=== PATIENT | female | born 1985 | race Hispanic/Latino ===

== ENCOUNTER 2018-05-13 20:41 | Emergency (ER) | payer OTHER ==
[~2018-05-13] VITALS: Ht 152.4 cm; Wt 59.0 kg
--- OUTSIDE RECORDS SUMMARY | 2018-05-13 20:44 | XMS REPORT ---
Author Author [facility] Address Unknown Phone Unavailable Care Team Providers Care Avionics Repair Technician Name Role Phone Unavailable Unavailable Problems This patient has no known problems. Allergies, Adverse Reactions, Alerts This patient has no known allergies or adverse reactions. Medications This patient has no known medications. Encounters Start Date/Time End Date/Time Encounter Type Admission Type Attending Clinicians Care Facility Care Department Encounter ID 2017-03-07 10:22:06 2017-03-07 10:22:06 Emergency [facility] [id number]
[2018-05-13] MEDS ORDERED: KETOROLAC TROMETHAMINE 60 MG/2 ML VIAL IM NR (21:15)
[2018-05-13] MEDS ORDERED: ONDANSETRON HCL 4 MG ORAL DISINTEGRATING TAB PO ONE (21:15)
== END 2018-05-13 23:00 | disposition home or self-care (01) ==
LOC: FSED 20:41
DX: R05 Cough (principal); R51 Headache; R11.2 Nausea with vomiting, unspecified; B34.9 Viral infection, unspecified; Z77.22 Contact with and (suspected) exposure to environmental tobacco smoke (acute) (chronic)
CPT/HCPCS: 81003; 83518; 87400; 99283; Q0162

== ENCOUNTER 2018-09-09 20:15 | Emergency (ER) | payer OTHER ==
[~2018-09-09] VITALS: Ht 152.4 cm; Wt 59.0 kg
--- OUTSIDE RECORDS SUMMARY | 2018-09-09 20:17 | XMS REPORT ---
Author Author [facility] Address Unknown Phone Unavailable Care Team Providers Care Transport Specialist Name Role Phone Unavailable Unavailable Problems This patient has no known problems. Allergies, Adverse Reactions, Alerts This patient has no known allergies or adverse reactions. Medications This patient has no known medications. Encounters Start Date/Time End Date/Time Encounter Type Admission Type Attending Clinicians Care Facility Care Department Encounter ID 2017-03-07 10:22:06 2017-03-07 10:22:06 Emergency [facility] [id number]
[2018-09-09] MEDS ORDERED: KETOROLAC TROMETHAMINE 30 MG/ML VIAL IV ONE (20:36)
[2018-09-09] MEDS ORDERED: ONDANSETRON HCL INJ 2MG/ML 2ML 2 MG/ML VIAL IV ONE (20:36)
[2018-09-09] MEDS ORDERED: SODIUM CHLORIDE 0.9% 1000ML 1,000 ML IV SCH (20:45)
--- NOTE | 2018-09-09 21:39 | Diagnostic Imaging Report ---
EXAM: CT Abdomen and Pelvis WITHOUT contrast INDICATION: Pain in my stomach. History of left-sided kidney stones. Lithotripsy performed. Right lower quadrant pain and bilateral flank pain this morning. COMPARISON: None. TECHNIQUE: Abdomen and pelvis were scanned utilizing a multidetector helical scanner from the lung base to the pubic symphysis without administration of IV contrast. Absence of intravenous contrast decreases sensitivity for detection of focal lesions and vascular pathology. Coronal and sagittal reformations were obtained. Routine protocol was performed. IV CONTRAST: None ORAL CONTRAST: Water COMPLICATIONS: None RADIATION DOSE: Total DLP: 481.96 mGy*cm Estimated effective dose: (DLP x 0.015 x size factor) mSv CTDIvol has been reviewed. It is below the limits set by the Radiation Protocol Committee (RPC). Dose modulation, iterative reconstruction, and/or weight based adjustment of the mA/kV was utilized to reduce the radiation dose to as low as reasonably achievable. FINDINGS: LINES and TUBES: None. LOWER THORAX: Unremarkable HEPATOBILIARY: No focal hepatic lesions. No biliary ductal dilation. GALLBLADDER: No radio-opaque stones or sludge. No wall thickening. SPLEEN: No splenomegaly. PANCREAS: No focal masses or ductal dilatation. ADRENALS: No adrenal nodules KIDNEYS/URETERS: No hydronephrosis. No cystic or solid mass lesions. No stones. GI TRACT: No abnormal distention, wall thickening, or evidence of bowel obstruction. Appendix is normal. PELVIC ORGANS/BLADDER: Uterus is anteverted and retroflexed, likely related to previous . Bladder is decompressed. Right-sided pelvic phlebolith. LYMPH NODES: No lymphadenopathy. VESSELS: Unremarkable. PERITONEUM / RETROPERITONEUM: No free air or fluid. BONES: Unremarkable. SOFT TISSUES: Unremarkable. IMPRESSION: No acute abnormalities identified in the abdomen or pelvis. Signed by: Dr. Tate Benedict M.D. on 09/09/2018 9:35 PM
[2018-09-09 22:07] VITALS: BP 118/73
== END 2018-09-09 22:20 | disposition home or self-care (01) ==
LOC: FSED 20:15
DX: R10.31 Right lower quadrant pain (principal); R11.2 Nausea with vomiting, unspecified; N30.91 Cystitis, unspecified with hematuria; Z87.442 Personal history of urinary calculi
CPT/HCPCS: 74176; 80053; 81003; 81025; 99284; J1885; J2405

== ENCOUNTER 2018-10-07 20:58 | Emergency (ER) | payer OTHER ==
[~2018-10-07] VITALS: Ht 152.4 cm; Wt 62.3 kg
[2018-10-07] MEDS ORDERED: SODIUM CHLORIDE 0.9% 1000ML 1,000 ML IV STA (21:48)
[2018-10-07] MEDS ORDERED: DIPHENHYDRAMINE HCL INJ 50 MG/ML VIAL IV ONE (22:00)
[2018-10-07] MEDS ORDERED: METOCLOPRAMIDE HCL 10 MG/2ML VIAL IV ONE (22:00)
[2018-10-07 22:18] LABS: BASOPHILS % 0.4 % (0.0-1.0); EOSINOPHILS # (AUTO) 0.1 (0.0-0.4); EOSINOPHILS % 1.4 % (0.0-6.0); HEMATOCRIT 35.7 % (34.2-44.1); HEMOGLOBIN 12.2 g/dL (12.0-16.0); MEAN CORPUSCULAR HEMOGLOBIN 34.6 pg (28-32); MEAN CORPUSCULAR HGB CONC 34.2 g/dL (31-35); MEAN CORPUSCULAR VOLUME 101.1 fL (81-99); MONOCYTES # (AUTO) 0.5 (0.2-0.8); MONOCYTES % 4.8 % (4.4-11.3); NEUTROPHILS # (AUTO) 6.2 (2.1-6.9); PLATELET COUNT 264 x10e3/uL (140-360); RED BLOOD COUNT 3.53 x10e6/uL (3.6-5.1); RED CELL DISTRIBUTION WIDTH 12.1 % (11.7-14.4)
[2018-10-07 22:23] LABS: CLARITY,URINE CLEAR (CLEAR); COLOR,URINE YELLOW (YELLOW); LEUKOCYTE ESTERASE ,URINE TRACE (NEGATIVE); NITRITE,URINE NEGATIVE (NEGATIVE); PROTEIN,URINE DIPSTICK NEGATIVE (NEGATIVE)
[2018-10-07 22:24] LABS: BILIRUBIN,URINE NEGATIVE (NEGATIVE); KETONES,URINE NEGATIVE (NEGATIVE); URINE UROBILINOGEN 0.2 mg/dL (0.2 - 1)
[2018-10-07 22:25] LABS: PREGNANCY TEST, URINE NEGATIVE (NEGATIVE)
[2018-10-07 22:29] LABS: BACTERIA,URINE MODERATE /HPF; EPITHELIAL CELLS,URINE MANY /LPF
[2018-10-07 22:59] LABS: ALANINE AMINOTRANSFERASE 17 IU/L (0-55); ALBUMIN 4.3 g/dL (3.5-5.0); ALBUMIN/GLOBULIN RATIO 1.5 (0.8-2.0); ALKALINE PHOSPHATASE 85 IU/L (40-150); AMYLASE 75 U/L (25-125); ANION GAP 10.5 mmol/L (8-16); BLOOD UREA NITROGEN 15 mg/dL (7-26); BUN/CREATININE RATIO 21 (6-25); CALCIUM 9.3 mg/dL (8.4-10.2); CARBON DIOXIDE 27 mmol/L (22-29); CHLORIDE 101 mmol/L (98-107); CREATININE, SERUM 0.73 mg/dL (0.57-1.11); EST GLOMERULAR FILTRATION RATE > 60 ML/MIN (60-); GLUCOSE 105 mg/dL (74-118); LIPASE 25 U/L (8-78); POTASSIUM 3.5 mmol/L (3.5-5.1); SODIUM 135 mmol/L (136-145)
[2018-10-07] MEDS ORDERED: ONDANSETRON HCL INJ 2MG/ML 2ML 2 MG/ML VIAL IV STA (23:00)
[2018-10-07 23:19] LABS: TRICHOMONAS,URINE MANY
[2018-10-08] MEDS ORDERED: CEFTRIAXONE SOD 250 MG VIAL IM ONE
[2018-10-08] MEDS ORDERED: AZITHROMYCIN 250 MG TAB PO ONE
[2018-10-08] MEDS ORDERED: LIDOCAINE HCL 1% LOCAL INJ 20 ML VIAL ONE (00:06)
[2018-10-08 00:21] VITALS: BP 108/85
== END 2018-10-08 00:28 | disposition home or self-care (01) ==
LOC: ER 20:58
DX: R51 Headache (principal); N30.91 Cystitis, unspecified with hematuria; M54.9 Dorsalgia, unspecified; G89.29 Other chronic pain
CPT/HCPCS: 36415; 80053; 81001; 81025; 82150; 83690; 85025; 96374; 96375; 99284; J0696; J1200; J2001; J2405; J2765; J7030

== ENCOUNTER 2018-11-22 23:07 | Emergency (ER) | payer OTHER ==
[~2018-11-22] VITALS: Ht 152.4 cm; Wt 63.5 kg
--- OUTSIDE RECORDS SUMMARY | 2018-11-22 23:10 | XMS REPORT | Clinical Summary ---
Author Author [facility] Address Unknown Phone Unavailable Care Team Providers Care Supervisor Front Name Role Phone Asked, No Pcp PCP Unavailable Allergies No Known Allergies Medications End Date Status Medication Sig Dispensed Refills Start Date Active traMADol (ULTRAM) 50 mg Take 50 mg by 0 tablet mouth every 6 (six) hours as needed for moderate pain. Pt is out of tramadol. 01/06/2018 ondansetron (ZOFRAN) 4 MG Take 1 tablet 16 tablet 0 tablet (4 mg total) 8 by mouth every 6 (six) hours for 4 days. 01/06/2018 acetaminophen-codeine Take 1-2 16 tablet 0 (TYLENOL WITH CODEINE #3) tablets by 8 300-30 mg per tablet mouth every 6 (six) hours as needed for moderate pain for up to 4 days. Active Problems Problem Noted Date Pyelonephritis 10/16/2017 Encounters Care Team Description Date Type Specialty Kory Devine MD Flank pain (Primary Dx) 01/02/2018 Emergency Emergency Medicine after 11/21/2017 Social History Date Tobacco Use Types Packs/Day Years Used Never Smoker Smokeless Tobacco: Never Used Alcohol Use Drinks/Week oz/Week Comments No Sex Assigned at Date Recorded Not on file Industry Job Start Date Occupation Not on file Not on file Not on file Travel End Travel History Travel Start No recent travel history available. Last Filed Vital Signs Time Taken Vital Sign Reading 01/02/2018 10:13 AM CDT Blood Pressure 109/60 01/02/2018 10:13 AM CDT Pulse 57 01/02/2018 10:13 AM CDT Temperature 36.4 C (97.6 F) 01/02/2018 10:13 AM CDT Respiratory Rate 18 01/02/2018 10:13 AM CDT Oxygen Saturation 98% - Inhaled Oxygen - Concentration 01/02/2018 7:48 AM CDT Weight 59 kg (130 lb) 01/02/2018 7:48 AM CDT Height 152.4 cm (5') 01/02/2018 7:48 AM CDT Body Mass Index 25.39 Plan of Treatment Health Maintenance Due Date Last Done Comments INFLUENZA VACCINE 01/02/2019 Procedures Comments Procedure Name Priority Date/Time Associated Diagnosis CT ABDOMEN PELVIS W STAT 01/02/2018 CONTRAST 9:42 AM CDT ZZESTIMATED GFR STAT 01/02/2018 8:07 AM CDT LIPASE LEVEL STAT 01/02/2018 8:07 AM CDT HC COMPLETE BLD COUNT STAT 01/02/2018 W/AUTO DIFF 8:07 AM CDT COMPREHENSIVE METABOLIC STAT 01/02/2018 PANEL 8:07 AM CDT HCG QUALITATIVE, URINE Routine 01/02/2018 SCREEN 7:51 AM CDT URINALYSIS SCREEN AND Routine 01/02/2018 MICROSCOPY, WITH REFLEX 7:51 AM CDT TO CULTURE URINE CULTURE Routine 01/02/2018 7:51 AM CDT after 11/21/2017 Results * CT Abdomen Pelvis W Contrast (01/02/2018 9:42 AM CDT) Specimen Narrative Performed At EXAMINATION:CT ABDOMEN PELVIS W CONTRAST [facility] CLINICAL HISTORY:abd painleft flank tenderness TECHNIQUE: Multiple axial CT images of the abdomen and pelvis are obtained with the use of intravenous contrast. Coronal and sagittal 3-D reconstructions are obtained. CT scans are performed using radiation dose reduction techniques.Technical factors are evaluated and adjusted to ensure appropriate moderation of exposure.Automated dose management technology is applied to adjust radiation exposure while achieving a diagnostic quality image. COMPARISON:October 2017 FINDINGS: Visualized lower lung zones are clear. The gallbladder does not have any wall thickening. There is no pericholecystic fluid. The CT appearance of the liver, spleen, adrenal glands and pancreas is unremarkable. The abdominal aorta has no aneurysmal dilatation. There is no retroperitoneal adenopathy. The kidneys do not have any solid renal mass or hydronephrosis. CT Pelvis: There is no evidence of any pneumoperitoneum. The evaluation of the GI tract is limited without any oral contrast. The bladder is unremarkable. The uterus is present. There is no evidence of any inguinal hernia. The appendix is visualized and has no inflammatory change. Colonic wall does not have any focal inflammation. Small bowel is not dilated. There is no free fluid seen within the abdomen or the pelvis. IMPRESSION: 1. There is no acute abnormality. 2. There is no bowel obstruction nor any dilated loops of bowel. 3. The kidneys are unremarkable. There is no evidence of any renal abscess. 4. There is no bowel obstruction nor any dilated loops of bowel. [facility]-[id number] Procedure Note Interface, Radiology Results Incoming - 01/02/2018 10:16 AM CDT EXAMINATION: CT ABDOMEN PELVIS W CONTRAST CLINICAL HISTORY: abd pain left flank tenderness TECHNIQUE: Multiple axial CT images of the abdomen and pelvis are obtained with the use of intravenous contrast. Coronal and sagittal 3-D reconstructions are obtained. CT scans are performed using radiation dose reduction techniques. Technical factors are evaluated and adjusted to ensure appropriate moderation of exposure. Automated dose management technology is applied to adjust radiation exposure while achieving a diagnostic quality image. COMPARISON: October 2017 FINDINGS: Visualized lower lung zones are clear. The gallbladder does not have any wall thickening. There is no pericholecystic fluid. The CT appearance of the liver, spleen, adrenal glands and pancreas is unremarkable. The abdominal aorta has no aneurysmal dilatation. There is no retroperitoneal adenopathy. The kidneys do not have any solid renal mass or hydronephrosis. CT Pelvis: There is no evidence of any pneumoperitoneum. The evaluation of the GI tract is limited without any oral contrast. The bladder is unremarkable. The uterus is present. There is no evidence of any inguinal hernia. The appendix is visualized and has no inflammatory change. Colonic wall does not have any focal inflammation. Small bowel is not dilated. There is no free fluid seen within the abdomen or the pelvis. IMPRESSION: 1. There is no acute abnormality. 2. There is no bowel obstruction nor any dilated loops of bowel. 3. The kidneys are unremarkable. There is no evidence of any renal abscess. 4. There is no bowel obstruction nor any dilated loops of bowel. [facility]-[id number] Performing Organization Address City/State/Zipcode Phone Number [facility] [address] [place] [address] * Estimated GFR (01/02/2018 8:07 AM CDT) [facility] GFR Non Af Amer >90 mL/min/1.73 m2 [facility] AND GENOMIC MEDICINE GFR Af Amer >90 mL/min/1.73 m2 [facility] Comment: OF PATHOLOGY Chronic kidney disease: <60 AND GENOMIC mL/min/1.73m2 MEDICINE Kidney failure: <15 mL/min/1.73m2 The estimated GFR is calculated from the IDMS-traceable Modification of Diet in Renal Disease Equation. The accuracy of the calculation is poor when the creatinine is normal. Calculated values >90 mL/min/1.73m2 are not reported. This equation has not been validated in children (<18 years), women, the elderly (>70 years), or ethnic groups other than Caucasians and Americans. Specimen Plasma specimen Performing Organization Address City/State/Zipcode Phone Number [place] [phone] [place] [address] PATHOLOGY AND GENOMIC [facility] * CBC with platelet and differential (01/02/2018 8:07 AM CDT) [facility] WBC 7.5 4.2 - 11.0 k/uL [facility]Y AND GENOMIC MEDICINE RBC 3.85 (L) 4.04 - 5.86 m/uL [facility] PATHOLOGY AND GENOMIC MEDICINE HGB 12.5 11.5 - 15.3 g/dL [facility] AND GENOMIC MEDICINE HCT 39.4 34.0 - 45.0 % [facility] AND GENOMIC MEDICINE MCV 102.3 (H) 80.0 - 98.0 fL [facility]OLOGY AND GENOMIC MEDICINE MCH 32.5 27.0 - 34.0 pg [facility] PATHOLOGY AND GENOMIC MEDICINE MCHC 31.7 31.5 - 36.5 g/dL [facility] PATHOLOGY AND GENOMIC MEDICINE RDW - SD 49.8 37.0 - 51.0 fL [facility] PATHOLOGY AND GENOMIC MEDICINE MPV 10.7 (H) 7.4 - 10.4 fL [facility]OLOGY AND GENOMIC MEDICINE Platelet count 231 150 - 400 k/uL [facility] AND GENOMIC MEDICINE Nucleated RBC 0.00 /100 WBC [facility] OF [facility]OLOGY AND GENOMIC MEDICINE Neutrophils 67.5 (H) 36.0 - 66.0 % [facility]OLOGY AND GENOMIC MEDICINE Lymphocytes 24.8 24.0 - 44.0 % [facility]OLOGY AND GENOMIC MEDICINE Monocytes 5.7 0.0 - 6.0 % [facility]OLOGY AND GENOMIC MEDICINE Eosinophils 1.1 0.0 - 6.0 % [facility] OF [facility]OLOGY AND GENOMIC MEDICINE Basophils 0.5 0.0 - 1.2 % [facility]OLOGY AND GENOMIC MEDICINE Immature 0.4 0.0 - 1.0 % [facility] granulocytes OF PATHOLOGY AND GENOMIC MEDICINE Specimen Blood Performing Organization Address City/[facility] [place] [address] PATHOLOGY AND GENOMIC MEDICINE * Lipase level (01/02/2018 8:07 AM CDT) Lipase 33 13 - 60 U/L [facility]OLOGY AND GENOMIC MEDICINE Specimen Plasma specimen Performing Organization Address City/[facility] [place] [address] PATHOLOGY AND [facility] MEDICINE * Comprehensive metabolic panel (01/02/2018 8:07 AM CDT) Sodium 139 135 - 150 mEq/L [facility]Y AND GENOMIC MEDICINE Potassium 4.2 3.5 - 5.0 mEq/L [facility]OLOGY AND GENOMIC MEDICINE Chloride 105 98 - 112 mEq/L [facility]OLOGY AND GENOMIC MEDICINE CO2 24 24 - 31 mmol/L [facility] OF [facility]OLOGY AND GENOMIC MEDICINE Anion gap 10@ANIO 7 - 15 mEq/L [facility]OLOGY AND GENOMIC MEDICINE BUN 10 7 - 18 mg/dL [facility]OLOGY AND GENOMIC MEDICINE Creatinine 0.70 0.50 - 0.90 mg/dL [facility]OLOGY AND GENOMIC MEDICINE Glucose 100 65 - 100 mg/dL [facility] OF [facility]OLOGY AND GENOMIC MEDICINE Calcium 8.8 8.3 - 10.2 mg/dL [facility] OF [facility]OLOGY AND GENOMIC MEDICINE Protein 6.5 6.3 - 8.3 g/dL [facility] OF [facility]OLOGY AND GENOMIC MEDICINE Albumin 3.9 3.5 - 5.0 g/dL [facility]OLOGY AND GENOMIC MEDICINE A/G ratio 1.5 0.7 - 3.8 [facility]OLOGY AND GENOMIC MEDICINE Alkaline 60 0 - 104 U/L [facility] phosphatase OF PATHOLOGY AND GENOMIC MEDICINE AST 18 10 - 35 U/L [facility] OF [facility]OLOGY AND GENOMIC MEDICINE ALT 12 5 - 50 U/L [facility]OLOGY AND GENOMIC MEDICINE Total bilirubin 0.4 0.2 - 1.2 mg/dL [facility] OF [facility]OLOGY AND GENOMIC MEDICINE Specimen Plasma specimen Performing Organization Address City/[facility] Phone [facility] [address] [place] [phone] PATHOLOGY AND [facility] MEDICINE * Urinalysis screen and microscopy, with reflex to culture (01/02/2018 7:51 AM CDT) Specimen site Clean catch [facility]Y AND GENOMIC MEDICINE Color, UA Straw [facility] OF [facility]OLOGY AND GENOMIC MEDICINE Appearance, UA Clear [facility] OF PATHOLOGY AND GENOMIC MEDICINE Specific 1.014 1.001 - 1.035 [facility] gravity, OF PATHOLOGY AND GENOMIC MEDICINE pH, UA 6.0 5.0 - 8.5 [facility] OF PATHOLOGY AND GENOMIC MEDICINE Protein, UA Negative Negative [facility] OF [facility]OLOGY AND GENOMIC MEDICINE Glucose, UA Negative Negative [facility] OF PATHOLOGY AND GENOMIC MEDICINE Ketones, UA Negative Negative [facility] OF PATHOLOGY AND GENOMIC MEDICINE Bilirubin, UA Negative Negative [facility] OF [facility]OLOGY AND GENOMIC MEDICINE Blood, UA Negative Negative [facility] OF PATHOLOGY AND GENOMIC MEDICINE Nitrite, UA Negative Negative [facility] OF PATHOLOGY AND GENOMIC MEDICINE Urobilinogen, Negative <2.0 [facility] UA OF PATHOLOGY AND GENOMIC MEDICINE Leukocyte Negative Negative [facility] esterase, UA OF PATHOLOGY AND GENOMIC MEDICINE Epithelial Few /HPF [facility] cells, UA OF PATHOLOGY AND GENOMIC MEDICINE WBC, UA 4 0 - 5 /HPF [facility] OF PATHOLOGY AND GENOMIC MEDICINE RBC, UA 1 0 - 5 /HPF [facility] OF PATHOLOGY AND GENOMIC MEDICINE Bacteria, UA None seen None seen [facility] OF [facility]OLOGY AND GENOMIC MEDICINE Yeast, UA None seen [facility] OF PATHOLOGY AND GENOMIC MEDICINE Yeast with None seen [facility] pseudohyphae, OF PATHOLOGY UA AND GENOMIC MEDICINE Specimen Urine Performing Organization Address City/State/Zipcode Phone Number [facility] [address] [phone] PATHOLOGY AND [facility] MEDICINE * hCG qualitative, urine screen (01/02/2018 7:51 AM CDT) hCG Negative Negative [facility] qualitative, Comment: OF PATHOLOGY urine The manufacturers stated AND GENOMIC sensitivity of HcG test for MEDICINE serum is >/=10 mIU/ml and urine is >/=20mIU/ml. Specimen Urine Performing Organization Address City/State/Zipcode Phone Number [facility] [address] [place] [address] PATHOLOGY AND GENOMIC MEDICINE * Urine culture (01/02/2018 7:51 AM CDT) Urine culture SEE COMMENTComment: [facility] Bacteriuria screen negative. OF PATHOLOGY AND GENOMIC MEDICINE Specimen Performing Organization Address City/State/Zipcode Phone Number [facility] [address] [place] [address] PATHOLOGY AND GENOMIC MEDICINE after 11/21/2017 Insurance Type Payer Benefit Subscriber ID Effective Phone Address Plan / Dates Group [place] [employer] [facility] xxxxxxxxx 2017-P COLLINS/ROB HICKS Advance Directives Patient has advance care planning documents on file. For more information, zenon mcdonough contact: Bhaskar Sr [address] [place] [address]
[2018-11-22] MEDS ORDERED: LIDOCAINE HCL 2% LOCAL 20 ML VIAL ONE (23:41)
== END 2018-11-22 23:52 | disposition home or self-care (01) ==
LOC: FSED 23:07
DX: S61.213A Laceration without foreign body of left middle finger without damage to nail, initial encounter (principal); W26.0XXA Contact with knife, initial encounter; Y92.000 Kitchen of unspecified non-institutional (private) residence as the place of occurrence of the external cause
CPT/HCPCS: 12001; 99283; J2001

== ENCOUNTER 2020-08-05 19:08 | Emergency (ER) | payer SELFPAY ==
[~2020-08-05] VITALS: Ht 152.4 cm; Wt 59.0 kg
[2020-08-05] MEDS ORDERED: FAMOTIDINE 20 MG/2 ML VIAL IV STA (19:44)
[2020-08-05] MEDS ORDERED: ONDANSETRON HCL INJ 2MG/ML 2ML 2 MG/ML VIAL IV STA (19:44)
[2020-08-05] MEDS ORDERED: SODIUM CHLORIDE 0.9% 1000ML 1,000 ML IV SCH (19:45)
[2020-08-05] MEDS ORDERED: ONDANSETRON HCL INJ 2MG/ML 2ML 2 MG/ML VIAL ONE (20:11)
[2020-08-05] MEDS ORDERED: FAMOTIDINE 20 MG/2 ML VIAL IV ONE (20:11)
[2020-08-05] MEDS ORDERED: SODIUM CHLORIDE 0.9% 1000ML 1,000 ML ONE (20:11)
[2020-08-05] MEDS ORDERED: SODIUM CHLORIDE 0.9% 50ML 50 ML ONE (20:37)
[2020-08-05] MEDS ORDERED: IOPAMIDOL 370 MG/ML 200 ML INFUS..BTL INJ ONE (20:37)
[2020-08-05] MEDS ORDERED: FAMOTIDINE20 MG PO (21:05)
[2020-08-05] MEDS ORDERED: ONDANSETRON ODT4 MG PO (21:06)
== END 2020-08-05 21:24 | disposition home or self-care (01) ==
LOC: FSED 19:30
DX: K29.70 Gastritis, unspecified, without bleeding (principal); K92.0 Hematemesis; F41.9 Anxiety disorder, unspecified; F31.9 Bipolar disorder, unspecified; G40.909 Epilepsy, unspecified, not intractable, without status epilepticus
CPT/HCPCS: 74177; 80048; 80076; 81003; 85025; 99284; J2405; J7030; Q9967

== ENCOUNTER 2020-08-17 19:07 | Emergency (ER) | payer SELFPAY ==
[~2020-08-17] VITALS: Ht 152.4 cm; Wt 61.2 kg
[~2020-08-17 19:07] MED LIST: FAMOTIDINE20 MG PO; ONDANSETRON ODT4 MG PO
== END 2020-08-17 23:22 | disposition home or self-care (01) ==
LOC: FSED 19:27
DX: M25.572 Pain in left ankle and joints of left foot (principal); M25.571 Pain in right ankle and joints of right foot; G40.909 Epilepsy, unspecified, not intractable, without status epilepticus; F41.9 Anxiety disorder, unspecified; F31.9 Bipolar disorder, unspecified; M54.9 Dorsalgia, unspecified; G89.29 Other chronic pain
CPT/HCPCS: 99282

== ENCOUNTER 2021-06-18 01:16 | Emergency (ER) | payer SELFPAY ==
[~2021-06-18] VITALS: Ht 152.4 cm; Wt 72.6 kg
[2021-06-18] MEDS ORDERED: AMOXICILLIN/CLAVULANATE K 875 MG TAB PO STA (02:14)
[2021-06-18] MEDS ORDERED: TRAMADOL HCL 50 MG TAB PO ONE (02:15)
[2021-06-18] MEDS ORDERED: AUGMENTIN 875-1 EACH PO (02:18)
[2021-06-18] MEDS ORDERED: ULTRAM 50MG50 MG PO (02:19)
== END 2021-06-18 02:30 | disposition home or self-care (01) ==
LOC: FSED 01:43
DX: K08.89 Other specified disorders of teeth and supporting structures (principal); G40.909 Epilepsy, unspecified, not intractable, without status epilepticus; F41.9 Anxiety disorder, unspecified
CPT/HCPCS: 99282

== ENCOUNTER 2024-02-17 22:23 | Emergency (ER) | payer OTHER ==
[~2024-02-17] VITALS: Ht 152.4 cm; Wt 72.6 kg
[~2024-02-17 22:23] MED LIST changes: +AUGMENTIN 875-1 EACH PO; +ULTRAM 50MG50 MG PO
[2024-02-17] MEDS: TRAMADOL HCL 50 MG TAB PO STA (23:36)
[2024-02-17 23:57] LABS: PREGNANCY TEST, URINE NEGATIVE (NEGATIVE)
[2024-02-17 23:58] LABS: AMPHETAMINES SCREEN,URINE NEGATIVE (NEGATIVE); BENZODIAZEPINES SCREEN,URINE POSITIVE (NEGATIVE); OPIATES SCREEN,URINE POSITIVE (NEGATIVE); PHENCYCLIDINE SCREEN,URINE NEGATIVE (NEGATIVE)
[2024-02-17 23:59] LABS: CANNABINOIDS SCREEN,URINE POSITIVE (NEGATIVE); METHADONE SCREEN, URINE NEGATIVE (NEGATIVE)
[2024-02-18 00:23] VITALS: PULSE 54; RESP 16; TEMP 98.9; O2SAT 98
[2024-02-18] MEDS ORDERED: KETOROLAC TROME10 MG PO (02:05)
== END 2024-02-18 02:13 | disposition home or self-care (01) ==
LOC: ER 22:30
DX: R10.31 Right lower quadrant pain (principal); F14.10 Cocaine abuse, uncomplicated; F11.90 Opioid use, unspecified, uncomplicated; G40.909 Epilepsy, unspecified, not intractable, without status epilepticus; F41.9 Anxiety disorder, unspecified; F31.9 Bipolar disorder, unspecified
CPT/HCPCS: 72192; 80307; 81025; 99284

== ENCOUNTER 2024-08-12 14:13 | Emergency (ER) | payer OTHER ==
[~2024-08-12] VITALS: Ht 152.4 cm; Wt 58.6 kg
[~2024-08-12 14:13] MED LIST changes: +KETOROLAC TROME10 MG PO
[2024-08-12 14:55] VITALS: PULSE 83; RESP 18; TEMP 99.1
[2024-08-12] MEDS: ACETAMINOPHEN 325 MG TAB PO ONE (15:44)
[2024-08-12] MEDS: IBUPROFEN 600 MG TAB PO STA (15:45)
[2024-08-12] MEDS: GUAIFENESIN 200 MG/10 ML UDC PO ONE (16:18)
[2024-08-12] MEDS ORDERED: IBUPROFEN800 MG PO (16:28)
[2024-08-12 16:34] VITALS: BP 119/84; O2SAT 100
== END 2024-08-12 16:33 | disposition home or self-care (01) ==
LOC: FSED 15:12
DX: R51.9 Headache, unspecified (principal); J06.9 Acute upper respiratory infection, unspecified; G40.909 Epilepsy, unspecified, not intractable, without status epilepticus; F41.9 Anxiety disorder, unspecified; F31.9 Bipolar disorder, unspecified
CPT/HCPCS: 0223U; 81003; 81025; 83518; 87400; 87420; 99283